=== PATIENT | female | born 1985 | race American Indian/Alaskan Native ===

== ENCOUNTER 2021-06-27 13:14 | Emergency (ER) | payer BC ==
--- NOTE | 2021-06-27 15:34 | Event Note ---
ED Screening Note ED Screening Note: LMP 05/09 VAG BLEEDING G1 NO DISCHARGE This initial assessment/diagnostic orders/clinical plan/treatment(s) is/are subject to change based on patients health status, clinical progression and re- assessment by fellow clinical providers in the ED. Further treatment and workup at subsequent clinical providers discretion. Patient/guardian urged not to elope from the ED as their condition may be serious if not clinically assessed and managed. Initial orders include: LAURENCE QUIÑONEZ
[2021-06-27 16:15] LABS: Hematocrit 41.2 % (30.3-42.9); Hemoglobin 13.5 gm/dl (10.1-14.3); Mean Corpuscular HGB Conc 33 % (30-34); Mean Corpuscular Volume 93 fl (79-97); Platelet Count 184 K/mm3 (140-440); Red Blood Count 4.45 M/mm3 (3.65-5.03); Red Cell Distribution Width 14.4 % (13.2-15.2)
[2021-06-27 16:35] LABS: BUN/Creatinine Ratio 8; Blood Urea Nitrogen 6 mg/dL (7-17); Calcium 8.9 mg/dL (8.4-10.2); Hemolysis Index 3
[2021-06-27 17:23] LABS: Bilirubin,Urine NEG (Negative); Blood,Urine LG (Negative); Color,Urine Yellow (Yellow); Mucus,Urine 1+ /HPF; Urobilinogen,Urine < 2.0 mg/dL (<2.0)
[2021-06-27 17:24] LABS: RBC,Urine > 182.0 /HPF (0.0-6.0)
--- NOTE | 2021-06-27 18:36 | Ultrasound Report ---
TRANSABDOMINAL AND TRANSVAGINAL OB PELVIC ULTRASOUND INDICATION / CLINICAL INFORMATION: 7 weeks with abdominal pain/vaginal spotting. COMPARISON: None available. FINDINGS: Transabdominal: The uterus is suboptimally visualized. I see no evidence of adnexal mass or free flui d. The urinary bladder is collapsed. Transvaginal: The uterus measures approximately 6.8 x 3.5 x 4.6 cm. The endometrial stripe measures 1 cm AP. The endometrial cavity is empty. There is a probable 6 mm subserosal fibroid in the anterior uterine fundus. The right ovary measures 2.9 x 1.2 x 2.5 cm and the left ovary 3.2 x 1.2 x 2.9 cm. There is normal bl ood flow to both ovaries on Doppler exam. I do not identify an adnexal mass. Minimal free fluid is pr esent in the cul-de-sac. IMPRESSION: No evidence of intrauterine or extrauterine . Signer Name: Simeon Lezama MD Signed: 06/27/2021 6:32 PM Workstation Name: [id number]
--- NOTE | 2021-06-27 18:44 | Emergency Department Report ---
ED Female HPI - General Chief complaint: Vaginal Bleeding Stated complaint: CRAMPS,BLEEDING,7WK PREG Time Seen by Provider: 06/27/21 15:29 Source: patient Mode of arrival: Ambulatory Limitations: No Limitations - History of Present Illness Initial comments: Patient is 35 years old female 1 para 0. Patient stated that she is 7weeks . Patient presented to the ER complaining of vaginal bleeding and lower abdominal pain, crampy in nature with no radiation. Patient denies any other symptoms. MD Complaint: vaginal bleeding, pelvic pain ED Review of Systems ROS: Stated complaint: CRAMPS,BLEEDING,7WK PREG Other details as noted in HPI Comment: All other systems reviewed and negative Constitutional: denies: chills, fever Respiratory: denies: cough, shortness of breath, SOB with exertion Cardiovascular: denies: chest pain, palpitations Gastrointestinal: abdominal pain. denies: nausea, vomiting, diarrhea, constipation, hematemesis, melena, hematochezia Musculoskeletal: denies: back pain Neurological: denies: headache, weakness, numbness, paresthesias, confusion ED Past Medical Hx - Past Medical History Previous Medical History?: No - Surgical History Past Surgical History?: Yes Additional Surgical History: ablation, leep procedure ED Physical Exam - General Limitations: No Limitations General appearance: alert, in no apparent distress - Head Head exam: Present: atraumatic, normocephalic, normal inspection - Eye Eye exam: Present: normal appearance, PERRL - ENT ENT exam: Present: normal exam, normal orophraynx, mucous membranes moist - Neck Neck exam: Present: normal inspection, full ROM. Absent: tenderness, meningismus - Respiratory Respiratory exam: Present: normal lung sounds bilaterally - Cardiovascular Cardiovascular Exam: Present: regular rate, normal rhythm, normal heart sounds - GI/Abdominal GI/Abdominal exam: Present: soft, normal bowel sounds. Absent: distended, ten derness, guarding, rebound, rigid, organomegaly, mass, bruit, hernia - Extremities Exam Extremities exam: Present: normal inspection, full ROM, normal capillary refill. Absent: tenderness, pedal edema, joint swelling, calf tenderness - Back Exam Back exam: Present: normal inspection, full ROM. Absent: CVA tenderness (R), CVA tenderness (L) - Neurological Exam Neurological exam: Present: alert, oriented X3, CN II-XII intact, normal gait, reflexes normal. Absent: motor sensory deficit - Psychiatric Psychiatric exam: Present: normal mood - Skin Skin exam: Present: warm, intact, normal color ED Course Vital Signs 06/27/21 15:17 Temperature 98.5 F Pulse Rate 104 H Respiratory 20 Rate Blood Pressure 131/81 O2 Sat by Pulse 100 Oximetry ED Medical Decision Making - Lab Data Result diagrams: 06/27/21 15:52 06/27/21 15:52 - Radiology Data Radiology results: report reviewed - Medical Decision Making Patient is 35 years old female 1 para 0. Patient stated that she is 7weeks . Patient presented to the ER complaining of vaginal bleeding and lower abdominal pain, crampy in nature with no radiation. Patient denies any other symptoms. Patient remained stable in the ER with stable vital sign. Labs reviewed and is unremarkable with an hCG of 444. Transvaginal ultrasound showed an empty uterus with no evidence of ectopic . Patient most likely had complete miscarriage. Patient advised to follow-up with her OB doctor in the next 2 to 3 days and to return to the ER if she develop any new symptoms. Critical care attestation.: If time is entered above; I have spent that time in minutes in the direct care of this critically ill patient, excluding procedure time. ED Disposition Clinical Impression: Vaginal bleeding, Miscarriage Disposition: 01 HOME / SELF CARE / HOMELESS Is pt being admited?: No Condition: Stable Instructions: Miscarriage, [id number] Referrals: PRIMARY CARE, [Primary Care Provider] - 3-5 Days
[2021-06-27 18:55] VITALS: BP 158/91
== END 2021-06-27 18:59 | disposition home or self-care (01) ==
LOC: ED 13:14
DX: O20.0 Threatened abortion (principal); Z3A.01 Less than 8 weeks gestation of pregnancy; Z79.899 Other long term (current) drug therapy; Z98.890 Other specified postprocedural states
CPT/HCPCS: 36415; 76801; 76817; 80048; 81001; 84702; 85027; 86900; 86901; 99284